=== PATIENT | male | born 1970 | race Caucasian/White ===

== ENCOUNTER 2018-06-12 20:55 | Emergency (ER) | payer BC, OTHER ==
[~2018-06-12] VITALS: Ht 170.2 cm; Wt 118.4 kg
[~2018-06-12 20:55] MED LIST: ASPI325T29 PO; METO-448 PO; OLME1TAB22 PO; PANT40TA4 PO
[2018-06-12 21:24] VITALS: Ht 170.2 cm; Wt 118.4 kg
--- NOTE | 2018-06-12 22:50 | ERD ---
ER Documentation Chief Complaint Chief Complaint nosebleeding on and off 24 hours HPI 48-year-old man complains of left sided epistaxis for most of the day after using the nasal hair beverly, patient also has a history of hypertension. Patient denies dizziness or loss of consciousness, no fevers or chills, no diffi culty breathing, no abdominal pain, no chest pain ROS All systems reviewed and are negative except as per history of present illness. Medications Home Meds Active Scripts Azithromycin* (Zithromax*) 250 Mg Tablet, 250 MG PO .ZPACK DIRECTED, #6 TAB TAKE 500 MG (2 TABS) THE FIRST DAY THEN 250 MG (1 TAB) DAYS 2-5 Prov:BEN BARKER MD 06/12/18 Pantoprazole* (Pantoprazole*) 40 Mg Tabec, 40 MG PO DAILY@06 for 28 Days, BOTTLE Prov:BJ JOHNSON MD 04/27/15 Metoprolol Tartrate* (Lopressor*) 25 Mg Tab, 25 MG PO BID for 30 Days, TAB Prov:BJ JOHNSON MD 04/27/15 Aspirin (Aspirin Lite-Coat) 325 Mg Tab, 325 MG PO DAILY for 28 Days, BOTTLE Prov:BJ JOHNSON MD 04/27/15 Reported Medications Olmesartan-Hydrochlorothiazide (Benicar HCT) 20-12.5 Mg Tablet, 1 TAB PO DAILY, TAB 04/26/15 Allergies Allergies: Coded Allergies: No Known Allergy (Unverified , 04/26/15) PMhx/Soc Hypertension, obesity History of Surgery: Yes (KNEE AND ANKLE REDUCTION) Anesthesia Reaction: No Hx Neurological Disorder: No Hx Respiratory Disorders: No Hx Cardiac Disorders: Yes (HTN) Hx Psychiatric Problems: No Hx Miscellaneous Medical Probl: No Hx Alcohol Use: Yes (OCCASIONALLY ) Hx Substance Use: No Hx Tobacco Use: Yes (DAILY 5-7 PIPE TOBACCO) FmHx Family History: No diabetes Physical Exam Vitals Vital Signs Date Temp Pulse Resp B/P (MAP) Pulse Ox O2 O2 Flow FiO2 Time Delivery Rate 06/13/18 75 18 165/116 100 Room Air 00:04 (132) 06/12/18 97.4 74 17 173/125 98 Room Air 23:41 (141) 06/12/18 98.2 86 18 170/89 98 21:24 (116) Physical Exam Const: No acute distress HEENT: Left naris epistaxis was evident on exam although no active bleeding noted Resp: Clear to auscultation bilaterally Cardio: Regular rate and rhythm, no murmurs Abd: Soft, non tender, non distended. Skin: No petechiae or rashes. No soft tissue contusions or ecchymosis Back: No midline or flank tenderness Ext: No cyanosis, or edema. Distal pulses equal bilateral Neur: Awake and alert x3, no focal deficits or facial asymmetry Psych: Normal Mood and Affect Results 24 hrs Current Medications Medications Dose Sig/Raquel Start Time Status Last (Trade) Ordered Route PRN Stop Time Admin Dose Reason Admin Lidocaine 15 ml ONCE ONCE 06/12/18 DC 06/12/18 (Xylocaine PO 23:00 23:23 (Viscous)) 06/12/18 23:01 1 spray ONCE ONCE 06/12/18 DC Phenylephrine NASAL 23:00 HCl 06/12/18 23:01 (Amaury-Synephri ne 0.5% [place]) Silver 2 stick ONCE ONCE 06/12/18 DC Nitrate TOP 23:00 (Silver 06/12/18 23:01 Nitrate Swabs) Clonidine 0.1 mg ONCE ONCE 06/12/18 DC 06/12/18 (Catapres) PO 23:00 23:23 06/12/18 23:01 Procedures/MDM Patient was placed on stacker attendant rhythm strip revealed a sinus rhythm at about 80 bpm. Patient was afebrile. I administered clonidine 0.1 mg p.o. x1 for hypertension I also administered phenylephrine spray to the left naris with adequate treatment of epistaxis, no residual bleeding noted Differential diagnoses considered, included but not limited to acute coronary syndrome, pulmonary embolism, aortic dissection, abdominal aortic aneurysm, sepsis, stroke, meningitis, encephalitis, pneumonia, appendicitis, cholecystitis, bowel obstruction, pyelonephritis, nephrolithiasis, cystitis, as well as metabolic, hematologic, and electrolyte abnormalities. As well as abscess, cellulitis, fractures, and dislocations. Patient feels much better at this time, and vital signs are normal, symptoms have improved. I did give strict instructions to return to the ED if symptoms continue or worsen, patient will otherwise follow-up with primary care physician. Patient understood instructions and agreed to plan. Disclaimer: Inadvertent spelling and grammatical errors are likely due to EHR/dictation software use and do not reflect on the overall quality of patient care. Also, please note that the electronic time recorded on this note does not necessarily reflect the actual time of the patient encounter. Departure Diagnosis: Primary Impression: Hypertension Hypertension type: essential hypertension Qualified Codes: I10 - Essential (primary) hypertension Additional Impression: Epistaxis Condition: Good BEN BARKER MD Jun 12, 2018 22:50
[2018-06-12] MEDS ORDERED: LIDOCAINE 2% VISC 15 ML CUP PO ONE (23:00)
[2018-06-12] MEDS ORDERED: PHENYLephrine 0.5% 15 ML NAS SPRAY NASAL ONE (23:00)
[2018-06-12] MEDS ORDERED: SILVER NITRATE SWAB TOP ONE (23:00)
[2018-06-12] MEDS ORDERED: AZIT250T PO (23:44)
[2018-06-13 00:04] VITALS: BP 165/116; PULSE 75; RESP 18
== END 2018-06-13 00:11 | disposition home or self-care (01) ==
LOC: E/R 20:55
DX: I10 Essential (primary) hypertension (principal); F17.210 Nicotine dependence, cigarettes, uncomplicated; Z79.82 Long term (current) use of aspirin
CPT/HCPCS: Z7502; Z7610; 99283